=== PATIENT | male | born 1985 | race Caucasian/White ===

== ENCOUNTER 2018-10-24 15:28 | Emergency (ER) | payer BC ==
[2018-10-24 15:37] VITALS: BP 140/92
[2018-10-24] MEDS ORDERED: Sodium Chloride 0.9% 10 ML Syringe FLUSH PRN (15:55)
[2018-10-24] MEDS ORDERED: Ondansetron 4 MG/2 ML SDV IVPUSH ONE (15:55)
[2018-10-24] MEDS ORDERED: Alum Hydrox/Mag Hydrox/Simeth 30 ML, Lidocaine 2% 15 ML PO ONE ×2 (15:56)
[2018-10-24] MEDS ORDERED: Famotidine 20 MG/2 ML SDV IVPUSH ONE (15:56)
[2018-10-24] MEDS ORDERED: Sodium Chloride 0.9% 1,000 ML IV SCH (16:00)
--- NOTE | 2018-10-24 17:24 | EDM.PDOC ---
ED HPI GENERAL MEDICAL PROBLEM - General Chief Complaint: Chest Pain Stated Complaint: CHEST PAIN/LEFT ARM PAIN Time Seen by Provider: 10/24/18 15:37 Source of Information: Reports: Patient History Limitations: Reports: No Limitations - History of Present Illness INITIAL COMMENTS - FREE TEXT/NARRATIVE: The patient presents with chest pain. This started a few days ago. The pain is now radiating to the left arm. He has some shortness of breath at times. He does admit to drinking this weekend. He has no fever, chills, cough, congestion, runny nose, or swelling in his legs. He does have some epigastric pain. He has no health problems such as heart disease, hypertension, diabetes or hypercholesterolemia. He does smoke at times. Onset: Gradual Duration: Day(s): Location: Reports: Chest Quality: Reports: Sharp Severity: Moderate Improves with: Reports: None Worsens with: Reports: None Associated Symptoms: Reports: Chest Pain, Shortness of Breath. Denies: Cough, Fever/Chills, Headaches, Nausea/Vomiting Mid-Sternal Chest Pain Score (Numeric/FACES): 4 - Related Data Allergies Allergy/AdvReac Type Severity Reaction Status Date / Time No Known Allergies Allergy Verified 10/24/18 15:35 Home Meds: Home Meds . [No Known Home Meds] 10/24/18 [History] Past Medical History Cardiovascular History: Reports: Hypertension Neurological History: Reports: Brain Injury Social & Family History - Tobacco Use Smoking Status *Q: Never Smoker - Recreational Drug Use Recreational Drug Use: No ED ROS GENERAL - Review of Systems Review Of Systems: See Below Constitutional: Reports: No Symptoms HEENT: Reports: No Symptoms Respiratory: Reports: Shortness of Breath Cardiovascular: Reports: Chest Pain Endocrine: Reports: No Symptoms GI/Abdominal: Reports: Abdominal Pain. Denies: Nausea, Vomiting : Reports: No Symptoms Musculoskeletal: Reports: No Symptoms ED EXAM, GENERAL - Physical Exam Exam: See Below Exam Limited By: No Limitations General Appearance: Alert, No Apparent Distress Ears: Normal External Exam Nose: Normal Inspection Head: Atraumatic, Normocephalic Neck: Normal Inspection Respiratory/Chest: No Respiratory Distress, Lungs Clear, Normal Breath Sounds Cardiovascular: Regular Rate, Rhythm, No Edema, No Murmur GI/Abdominal: Soft, No Organomegaly, No Mass, Tender (Mild tenderness to the epigastric region) Back Exam: Normal Inspection Extremities: Normal Inspection EKG INTERPRETATION EKG Date: 10/24/18 Time: 16:19 Rhythm: NSR Rate (Beats/Min): 72 [place]: Normal P-Wave: Present QRS: Normal ST-T: Normal QT: Normal Course - Vital Signs Last Recorded V/S: Last Vital Signs Temp 98.4 F 10/24/18 15:35 Pulse 80 10/24/18 15:35 Resp 17 10/24/18 15:35 BP 140/92 H 10/24/18 15:35 Pulse Ox 98 10/24/18 15:35 - Orders/Labs/Meds Orders: Active Orders 24 hr Category Date Time Status Cardiac Monitoring [RC] . DIRECTED Care 10/24/18 15:55 Active EKG Documentation Completion [RC] STAT Care 10/24/18 15:56 Active Peripheral IV Care [RC] . DIRECTED Care 10/24/18 15:55 Active Chest 1V Frontal [CR] Stat Exams 10/24/18 15:56 Taken Sodium Chloride 0.9% [Normal Saline] 1,000 ml Med 10/24/18 16:00 Active IV .BOLUS Sodium Chloride 0.9% [Saline Flush] Med 10/24/18 15:55 Active 10 ml FLUSH ASDIRECTED PRN ED Antiemetic Medication Reflex [OM.PC] Stat Oth 10/24/18 15:55 Ordered Peripheral IV Insertion Adult [OM.PC] Stat Oth 10/24/18 15:55 Ordered Medication Orders Sodium Chloride (Normal Saline) 1,000 mls @ 1,000 mls/hr IV .BOLUS ANGELICA Last Admin: 10/24/18 16:15 Dose: 1,000 mls/hr Sodium Chloride (Saline Flush) 10 ml FLUSH ASDIRECTED PRN PRN Reason: Keep Vein Open Last Admin: 10/24/18 16:16 Dose: 10 ml Labs: Laboratory Tests 10/24/18 10/24/18 Range/Units 16:15 16:15 WBC 7.31 (4.23-9.07) K/mm3 RBC 5.34 (4.63-6.08) M/mm3 Hgb 15.0 (13.7-17.5) gm/L Hct 45.5 (40.1-51.0) % MCV 85.2 (79.0-92.2) fl MCH 28.1 (25.7-32.2) pg MCHC 33.0 (32.2-35.5) g/dl RDW Std Deviation 39.1 (35.1-43.9) fL Plt Count 282 (163-337) K/mm3 MPV 9.9 (9.4-12.3) fl Neut % (Auto) 60.3 (34.0-67.9) % Lymph % (Auto) 27.6 (21.8-53.1) % [place] % (Auto) 11.4 (5.3-12.2) % Eos % (Auto) 0.3 L (0.8-7.0) Baso % (Auto) 0.4 (0.1-1.2) % Neut # (Auto) 4.41 (1.78-5.38) K/mm3 Lymph # (Auto) 2.02 (1.32-3.57) K/mm3 [place] # (Auto) 0.83 H (0.30-0.82) K/mm3 Eos # (Auto) 0.02 L (0.04-0.54) K/mm3 Baso # (Auto) 0.03 (0.01-0.08) K/mm3 Sodium 141 (136-145) mEq/L Potassium 4.1 (3.5-5.1) mEq/L Chloride 102 (98-107) mEq/L Carbon Dioxide 30 (21-32) mEq/L Anion Gap 13.1 (5-15) BUN 15 (7-18) mg/dL Creatinine 1.1 (0.7-1.3) mg/dL Est Cr Clr Drug Dosing 100.17 mL/min Estimated GFR (MDRD) > 60 (>60) mL/min BUN/Creatinine Ratio 13.6 L (14-18) Glucose 97 (74-106) mg/dL Calcium 9.4 (8.5-10.1) mg/dL Total Bilirubin 0.7 (0.2-1.0) mg/dL AST 26 (15-37) U/L ALT 43 (16-63) U/L Alkaline Phosphatase 81 (46-116) U/L Troponin I < 0.017 (0.00-0.056) ng/mL Total Protein 7.3 (6.4-8.2) g/dl Albumin 4.0 (3.4-5.0) g/dl Globulin 3.3 gm/dL Albumin/Globulin Ratio 1.2 (1-2) Lipase 138 (73-393) U/L Meds: Medications Generic Name Dose Route Start Last Admin Trade Name Freq PRN Reason Stop Dose Admin Sodium Chloride 1,000 mls @ 1,000 mls/hr 10/24/18 16:00 10/24/18 16:15 Normal Saline IV 1,000 mls/hr .BOLUS ANGELICA Administration Sodium Chloride 10 ml 10/24/18 15:55 10/24/18 16:16 Saline Flush FLUSH 10 ml ASDIRECTED PRN Administration Keep Vein Open Discontinued Medications Generic Name Dose Route Start Last Admin Trade Name Freq PRN Reason Stop Dose Admin Al Hydroxide/Mg Hydroxide 30 0 ml 10/24/18 15:56 10/24/18 16:16 ml/ Lidocaine HCl 15 ml PO 10/24/18 15:57 45 ml ONETIME ONE Administration Famotidine 20 mg 10/24/18 15:56 10/24/18 16:15 Pepcid IVPUSH 10/24/18 15:57 20 mg ONETIME ONE Administration Ondansetron HCl 4 mg 10/24/18 15:55 10/24/18 16:15 Zofran IVPUSH 10/24/18 15:56 4 mg ONETIME ONE Administration - Re-Assessments/Exams Free Text/Narrative Re-Assessment/Exam: 10/24/18 17:26 I ordered an IV NS 1L bolus, EKG, CXR labs, pepcid 20mg IV, GI cocktail 45mls by mouth. 10/24/18 17:27 His EKG shows a NSR with no acute changes. His CXR looks good. His CBC and CMP looks good. His troponin is negative. 10/24/18 17:28 He feels much better. The pain is gone. I feel this is gastritis. I will have him take some pepcid and maalox. Departure - Departure Time of Disposition: 17:30 Disposition: Home, Self-Care 01 Condition: Good Clinical Impression: Atypical chest pain Gastritis Qualifiers: Gastritis type: unspecified gastritis Chronicity: acute Gastritis bleeding: without bleeding Qualified Code(s): K29.00 - Acute gastritis without bleeding Referrals: PCP,None [Primary Care Provider] - Dotty Stewart PA-C [Physician Devops Architect] - 1 Week Additional Instructions: Avoid alcohol for a few days. Take pepcid 20mg daily for 1 week. Take maalox as needed for any discomfort. Please return if you are worse. - My Orders Last 24 Hours: My Active Orders 10/24/18 15:55 Cardiac Monitoring [RC] . DIRECTED Peripheral IV Care [RC] . DIRECTED Sodium Chloride 0.9% [Saline Flush] 10 ml FLUSH ASDIRECTED PRN ED Antiemetic Medication Reflex [OM.PC] Stat Peripheral IV Insertion Adult [OM.PC] Stat 10/24/18 15:56 EKG Documentation Completion [RC] STAT Chest 1V Frontal [CR] Stat 10/24/18 16:00 Sodium Chloride 0.9% [Normal Saline] 1,000 ml IV .BOLUS - Assessment/Plan Last 24 Hours: My Active Orders 10/24/18 15:55 Cardiac Monitoring [RC] . DIRECTED Peripheral IV Care [RC] . DIRECTED Sodium Chloride 0.9% [Saline Flush] 10 ml FLUSH ASDIRECTED PRN ED Antiemetic Medication Reflex [OM.PC] Stat Peripheral IV Insertion Adult [OM.PC] Stat 10/24/18 15:56 EKG Documentation Completion [RC] STAT Chest 1V Frontal [CR] Stat 10/24/18 16:00 Sodium Chloride 0.9% [Normal Saline] 1,000 ml IV .BOLUS
--- NOTE | 2018-10-25 06:59 | CR ---
Chest: Frontal view of the chest was obtained utilizing portable technique. Comparison: No previous study. Heart size and mediastinum are normal. Lungs are clear. Bony structures are unremarkable. Impression: 1. Nothing acute is seen on portable chest x-ray. Diagnostic code #1
== END 2018-10-24 17:45 | disposition home or self-care (01) ==
LOC: JD.ED 15:28
DX: K29.00 Acute gastritis without bleeding (principal); R07.89 Other chest pain; I10 Essential (primary) hypertension
CPT/HCPCS: 36415; 71045; 80053; 83690; 84484; 85025; 93005; 96361; 96374; 96375; 99285; A9270; J2405; J3490; J7040; 93010; 99284

== ENCOUNTER 2020-06-02 19:19 | Emergency (ER) | payer BC ==
[2020-06-02 19:26] VITALS: BP 143/97; PULSE 70
--- NOTE | 2020-06-02 19:41 | EDM.PDOC ---
ED HPI GENERAL MEDICAL PROBLEM - General Chief Complaint: Abdominal Pain Stated Complaint: CONSTIPATION Time Seen by Provider: 06/02/20 19:25 Source of Information: Reports: Patient History Limitations: Reports: No Limitations - History of Present Illness INITIAL COMMENTS - FREE TEXT/NARRATIVE: The patient presents with lower abdominal pain and constipation. He says he has not gone in over a week. He did take dulcolax twice this week and had watery stools after. This has happened to him once before when he was hospitalized for bleeding in his brain. He is still eating and drinking okay. He says he has no energy. He denies fever, chills, cough, congestion, runny nose, chest pain, shortness of breath, nausea or vomiting. He has no dysuria. Onset: Gradual Duration: Week(s): (1) Location: Reports: Abdomen Quality: Reports: Ache Severity: Mild Improves with: Reports: None Worsens with: Reports: None Associated Symptoms: Denies: Chest Pain, Cough, Fever/Chills, Headaches, Nausea/Vomiting, Shortness of Breath Bilateral Lower Abdomen Pain Score (Numeric/FACES): 6 - Related Data Allergies Allergy/AdvReac Type Severity Reaction Status Date / Time No Known Allergies Allergy Verified 06/02/20 19:27 Home Meds: Home Meds . [No Known Home Meds] 10/24/18 [History] Past Medical History Cardiovascular History: Reports: Hypertension Neurological History: Reports: Brain Injury - Past Surgical History Neurological Surgical History: Reports: Other (See Below) Other Neurological Surgeries/Procedures: brain sx Musculoskeletal Surgical History: Reports: Other (See Below) Other Musculoskeletal Surgeries/Procedures:: L ACL sx Social & Family History - Family History Family Medical History: Noncontributory - Tobacco Use Smoking Status *Q: Current Every Day Smoker Years of Tobacco use: 15 Packs/Tins Daily: 3 - Caffeine Use Caffeine Use: Reports: Coffee - Recreational Drug Use Recreational Drug Use: No ED ROS GENERAL - Review of Systems Review Of Systems: See Below Constitutional: Reports: No Symptoms HEENT: Reports: No Symptoms Respiratory: Reports: No Symptoms Cardiovascular: Reports: No Symptoms Endocrine: Reports: No Symptoms GI/Abdominal: Reports: Abdominal Pain. Denies: Diarrhea, Nausea, Vomiting : Reports: No Symptoms Musculoskeletal: Reports: No Symptoms ED EXAM, GI/ABD - Physical Exam Exam: See Below Exam Limited By: No Limitations General Appearance: Alert, No Apparent Distress Ears: Normal External Exam Nose: Normal Inspection Head: Atraumatic, Normocephalic Neck: Normal Inspection Respiratory/Chest: No Respiratory Distress, Lungs Clear, Normal Breath Sounds Cardiovascular: Regular Rate, Rhythm, No Edema, No Murmur GI/Abdominal Exam: Soft, No Organomegaly, No Mass, Tender (Mild lower abdominal tenderness) Course - Vital Signs Last Recorded V/S: Last Vital Signs Temp 98.1 F 06/02/20 19:24 Pulse 70 06/02/20 19:24 Resp 19 06/02/20 19:24 BP 143/97 H 06/02/20 19:24 Pulse Ox 97 06/02/20 19:24 - Orders/Labs/Meds Orders: Active Orders 24 hr Category Date Time Status Abdomen 1V Upright [CR] Stat Exams 06/02/20 19:34 Taken Magnesium Citrate [Citrate of Magnesia] Med 06/02/20 20:24 Once 296 ml PO ONETIME ONE Labs: Laboratory Tests 06/02/20 06/02/20 Range/Units 19:45 19:45 WBC 8.03 (4.23-9.07) K/mm3 RBC 5.06 (4.63-6.08) M/mm3 Hgb 14.5 (13.7-17.5) gm/dl Hct 42.7 (40.1-51.0) % MCV 84.4 (79.0-92.2) fl MCH 28.7 (25.7-32.2) pg MCHC 34.0 (32.2-35.5) g/dl RDW Std Deviation 36.3 (35.1-43.9) fL Plt Count 287 (163-337) K/mm3 MPV 9.6 (9.4-12.3) fl Neut % (Auto) 56.6 (34.0-67.9) % Lymph % (Auto) 32.8 (21.8-53.1) % [place] % (Auto) 9.1 (5.3-12.2) % Eos % (Auto) 0.9 (0.8-7.0) Baso % (Auto) 0.5 (0.1-1.2) % Neut # (Auto) 4.55 (1.78-5.38) K/mm3 Lymph # (Auto) 2.63 (1.32-3.57) K/mm3 [place] # (Auto) 0.73 (0.30-0.82) K/mm3 Eos # (Auto) 0.07 (0.04-0.54) K/mm3 Baso # (Auto) 0.04 (0.01-0.08) K/mm3 Sodium 141 (136-145) mEq/L Potassium 4.0 (3.5-5.1) mEq/L Chloride 104 (98-107) mEq/L Carbon Dioxide 27 (21-32) mEq/L Anion Gap 14.0 (5-15) BUN 17 (7-18) mg/dL Creatinine 1.1 (0.7-1.3) mg/dL Est Cr Clr Drug Dosing 98.88 mL/min Estimated GFR (MDRD) > 60 (>60) mL/min BUN/Creatinine Ratio 15.5 (14-18) Glucose 97 (74-106) mg/dL Calcium 8.8 (8.5-10.1) mg/dL Total Bilirubin 0.5 (0.2-1.0) mg/dL AST 16 (15-37) U/L ALT 32 (16-63) U/L Alkaline Phosphatase 73 (46-116) U/L C-Reactive Protein <0.2 (<1.0) mg/dL Total Protein 7.1 (6.4-8.2) g/dl Albumin 4.0 (3.4-5.0) g/dl Globulin 3.1 gm/dL Albumin/Globulin Ratio 1.3 (1-2) Lipase 129 (73-393) U/L - Re-Assessments/Exams Free Text/Narrative Re-Assessment/Exam: 06/02/20 19:41 I ordered labs and an x-ray of his abdomen. 06/02/20 20:25 His CBC and CMP look good. His x-ray shows some stool higher up. I will give him some magnesium citrate and see if that helps. Departure - Departure Time of Disposition: 20:30 Disposition: Home, Self-Care 01 Condition: Good Clinical Impression: Abdominal pain Qualifiers: Abdominal location: lower abdomen, unspecified Qualified Code(s): R10.30 - Lower abdominal pain, unspecified Constipation Qualifiers: Constipation type: other constipation type Qualified Code(s): K59.09 - Other constipation - Discharge Information *PRESCRIPTION DRUG MONITORING PROGRAM REVIEWED*: Not Applicable *COPY OF PRESCRIPTION DRUG MONITORING REPORT IN PATIENT THERON: Not Applicable Referrals: Rashi Payan Jr, MD [Primary Care Provider] - 1 Week Forms: ED Department Discharge Additional Instructions: Take the magnesium citrate 1/2 bottle tonight with water. If that does not help by the morning take the other half bottle. Please return if you are worse. Sepsis Event Note (ED) - Evaluation Sepsis Screening Result: No Definite Risk - Focused Exam Vital Signs: Vital Signs Temp Pulse Resp BP Pulse Ox 06/02/20 19:24 98.1 F 70 19 143/97 H 97 - My Orders Last 24 Hours: My Active Orders 06/02/20 19:34 Abdomen 1V Upright [CR] Stat 06/02/20 20:24 Magnesium Citrate [Citrate of Magnesia] 296 ml PO ONETIME ONE - Assessment/Plan Last 24 Hours: My Active Orders 06/02/20 19:34 Abdomen 1V Upright [CR] Stat 06/02/20 20:24 Magnesium Citrate [Citrate of Magnesia] 296 ml PO ONETIME ONE
[2020-06-02] MEDS ORDERED: Magnesium Citrate Solution 296 ML Bottle PO ONE (20:24)
== END 2020-06-02 20:41 | disposition home or self-care (01) ==
LOC: JD.ED 19:19
DX: K59.09 Other constipation (principal); I10 Essential (primary) hypertension; F17.210 Nicotine dependence, cigarettes, uncomplicated
CPT/HCPCS: 36415; 74018; 80053; 83690; 85025; 86140; 99283; A9270